=== PATIENT | female | born 1950 | race Caucasian/White ===

== ENCOUNTER 2024-12-29 19:05 | Inpatient (IN) | payer OTHER, MEDICARE ==
[2024-12-29] MEDS ORDERED: ALBUTEROL SO4 2.5/IPRATROPIUM 0.5 INH SOL 3 ML VIAL.NEB. NEB ONE ×2 (19:34→20:30)
[2024-12-29] MEDS: ALBUTEROL SO4 2.5/IPRATROPIUM 0.5 INH SOL 3 ML VIAL.NEB. NEB ONE (19:44)
[2024-12-29] MEDS ORDERED: ACETAMINOPHEN INJECTION 100 ML ONE (20:25)
[2024-12-29] MEDS: ACETAMINOPHEN 1000 MG/100 ML BAG IVPB ONE (20:29)
[2024-12-29] MEDS: ALBUTEROL SO4 2.5/IPRATROPIUM 0.5 INH SOL 3 ML VIAL.NEB. NEB SCH (20:30)
[2024-12-29 20:38] LABS: ABSOLUTE IMMATURE GRANULOCYTES 0.03 x10^3/uL (0.0-0.031); BASOPHILS # 0.01 x10^3/uL (0.01-0.08); EOSINOPHIL % 0.1 % (0.7-5.8); EOSINOPHILS # 0.01 x10^3/uL (0.04-0.36); HEMATOCRIT 38.1 % (34.1-44.9); HEMOGLOBIN 12.5 g/dL (11.2-15.7); MCHC 32.8 g/dl (32.2-35.5); MEAN CELL VOLUME 89.4 fl (79.4-94.8); MEAN PLT VOLUME 9.9 fl (9.4-12.3); MONOCYTE # 0.68 x10^3/uL (0.24-0.86); PLATELET COUNT 124 x10^3/uL (182-369); RDW 12.9 % (12.4-16.6)
[2024-12-29 20:39] LABS: VENOUS BASE EXCESS -0.5 mmol/L (-2-2); VENOUS O2 SATURATION 83.8 % (70-80); VENOUS PCO2 38.5 mmHg (38-52); VENOUS PH 7.411 (7.310-7.410)
[2024-12-29 20:45] LABS: INR 1.07 (0.83-1.09); PROTHROMBIN TIME (PATIENT) 11.7 SEC (9.7-13.0)
[2024-12-29 20:48] LABS: ACTIVATED PTT 29.2 SECONDS (25.2-36.5)
[2024-12-29 21:02] LABS: POTASSIUM 3.7 mmol/L (3.5-5.1)
[2024-12-29 21:04] LABS: ALBUMIN 3.9 g/dl (3.4-5.0); BLOOD UREA NITROGEN 12.4 mg/dL (7-18); CALCIUM 9.1 mg/dL (8.5-10.1)
[2024-12-29 21:08] LABS: CREATININE 0.8 mg/dL (0.55-1.3)
[2024-12-29 21:09] LABS: BILIRUBIN,TOTAL 0.5 mg/dL (0.2-1); TOT PROT 6.8 g/dl (6.4-8.2)
[2024-12-29] MEDS ORDERED: cefTRIAXone SODIUM 1 GM VIAL ONE (22:14)
[2024-12-29] MEDS ORDERED: CEFTRIAXONE 1 G/50 ML PREMIX 50 ML IVPB ONE (22:15)
[2024-12-29] MEDS: CEFTRIAXONE 1 GM in DEXTROSE 5%-WATER - 100 ML IVPB ONE (22:19)
[2024-12-29] MEDS ORDERED: AZITHROMYCIN IVPB 500 MG/250 ML BAG IVPB ONE (23:03)
[2024-12-29] MEDS: AZITHROMYCIN IVPB 500 MG in DEXTROSE 5%-WATER - 250 ML IVPB ONE (23:20)
[2024-12-30 01:39] LABS: LACTIC ACID 2.3 mmol/L (0.4-2.0)
[2024-12-30 03:00] LABS: URINE APPEARANCE CLEAR; URINE BILIRUBIN NEGATIVE (NEGATIVE); URINE COLOR YELLOW; URINE GLUCOSE (UA) NEGATIVE (NEGATIVE); URINE KETONE NEGATIVE (NEGATIVE); URINE LEUK ESTERASE NEGATIVE (NEGATIVE); URINE NITRITE NEGATIVE (NEGATIVE); URINE PROTEIN NEGATIVE (NEGATIVE); URINE UROBILINOGEN 0.2 mg/dL (0.2-1.0)
[2024-12-30 03:19] VITALS: BMI 19.3
[2024-12-30] MEDS: ACETAMINOPHEN 325 MG TABLET (FP) PO PRN (03:36)
[2024-12-30] MEDS: SODIUM CHLORIDE 1,000 ML IV SCH (03:38)
[2024-12-30] MEDS: guaiFENesin/D-METHORPHAN HB 10 ML UNIT-DOSE CUPS PO SCH (06:44)
[2024-12-30] MEDS: IBUPROFEN 400 MG TABLET (FP) PO ONE (06:44)
[2024-12-30 09:11] LABS: EOSINOPHIL % 0.1 % (0.7-5.8); EOSINOPHILS # 0.01 x10^3/uL (0.04-0.36); HEMOGLOBIN 11.4 g/dL (11.2-15.7); RDW 13.1 % (12.4-16.6)
[2024-12-30 09:13] LABS: ABSOLUTE IMMATURE GRANULOCYTES 0.02 x10^3/uL (0.0-0.031); BASOPHILS # 0.02 x10^3/uL (0.01-0.08); HEMATOCRIT 34.4 % (34.1-44.9); MCHC 33.1 g/dl (32.2-35.5); MEAN CELL VOLUME 89.4 fl (79.4-94.8); MONOCYTE # 0.65 x10^3/uL (0.24-0.86); MONOCYTE % 8.5 % (4.7-12.5); PLATELET COUNT 119 x10^3/uL (182-369)
[2024-12-30 09:27] LABS: POTASSIUM 3.6 mmol/L (3.5-5.1)
[2024-12-30 09:31] LABS: CHOLESTEROL 170 mg/dL (50-200)
[2024-12-30 09:32] LABS: LDL CHOLESTEROL (ONLY SJRH) 66 mg/dL (5-100)
[2024-12-30 09:33] LABS: ALBUMIN 3.2 g/dl (3.4-5.0); HDL CHOLESTEROL 89 mg/dL (40-60)
[2024-12-30 09:34] LABS: BLOOD UREA NITROGEN 10.2 mg/dL (7-18); CALCIUM 8.8 mg/dL (8.5-10.1); MAGNESIUM 1.9 mg/dL (1.8-2.4)
[2024-12-30 09:37] LABS: CREATININE 0.7 mg/dL (0.55-1.3); PHOSPHOROUS 2.9 mg/dL (2.5-4.9)
[2024-12-30 09:38] LABS: BILIRUBIN,TOTAL 0.4 mg/dL (0.2-1); TOT PROT 6.1 g/dl (6.4-8.2)
[2024-12-30] MEDS: CEFTRIAXONE 1 G/50 ML PREMIX 50 ML IVPB SCH (09:40)
[2024-12-30] MEDS: ENOXAPARIN NA (PORCINE) 40 MG/0.4 ML DISP.SYRIN SQ SCH (09:40)
[2024-12-30] MEDS: SERTRALINE HCL 50 MG TABLET (FP) PO SCH (09:40)
[2024-12-30] MEDS: methylPREDNISolone NA SUCC 40 MG/1 ML VIAL IVPUSH SCH (11:33)
[2024-12-30] MEDS: PANTOPRAZOLE 40 MG TABLET PO SCH (15:16)
[2024-12-30] MEDS ORDERED: BENZONATATE 200 MG CAPSULE PO PRN (15:50)
[2024-12-30] MEDS: MELATONIN 5 MG TABLETS PO ONE (22:07)
[2024-12-30] MEDS: ATORVASTATIN CA 10 MG TABLET (FP) PO SCH (22:07)
[2024-12-30] MEDS: AZITHROMYCIN IVPB 500 MG/250 ML BAG IVPB SCH (22:55)
[2024-12-30] MEDS ORDERED: AZITHROMYCIN IVPB 500 MG/250 ML BAG IVPB SCH (23:00)
[2024-12-31] MEDS: ALBUTEROL SO4 2.5/IPRATROPIUM 0.5 INH SOL 3 ML VIAL.NEB. NEB PRN (07:44)
[2024-12-31 08:13] LABS: ABSOLUTE IMMATURE GRANULOCYTES 0.03 x10^3/uL (0.0-0.031); EOSINOPHIL % 0.5 % (0.7-5.8); EOSINOPHILS # 0.03 x10^3/uL (0.04-0.36); HEMOGLOBIN 11.1 g/dL (11.2-15.7); RDW 13.2 % (12.4-16.6)
[2024-12-31 08:15] LABS: BASOPHILS # 0.01 x10^3/uL (0.01-0.08); HEMATOCRIT 34.4 % (34.1-44.9); MCHC 32.3 g/dl (32.2-35.5); MEAN CELL VOLUME 91.2 fl (79.4-94.8); MEAN PLT VOLUME 10.4 fl (9.4-12.3); MONOCYTE # 0.48 x10^3/uL (0.24-0.86); MONOCYTE % 7.4 % (4.7-12.5); PLATELET COUNT 125 x10^3/uL (182-369)
[2024-12-31 10:04] LABS: POTASSIUM 3.4 mmol/L (3.5-5.1)
[2024-12-31 10:07] LABS: ALBUMIN 3.1 g/dl (3.4-5.0)
[2024-12-31 10:11] LABS: CALCIUM 8.5 mg/dL (8.5-10.1); CREATININE 0.6 mg/dL (0.55-1.3)
[2024-12-31 10:12] LABS: TOT PROT 6.1 g/dl (6.4-8.2)
[2024-12-31 10:32] LABS: BILIRUBIN,TOTAL 0.3 mg/dL (0.2-1)
[2024-12-31] MEDS: POTASSIUM CHLORIDE TABS 20 MEQ TABLET.ER (FP) PO ONE (10:55)
[2024-12-31] MEDS: ALBUTEROL SO4 2.5/IPRATROPIUM 0.5 INH SOL 3 ML VIAL.NEB. NEB SCH (11:55)
[2024-12-31 14:55] VITALS: RESP 18
[2024-12-31 21:08] VITALS: PULSE 76
[2024-12-31] MEDS: MELATONIN 5 MG TABLETS PO ONE (21:35)
[2024-12-31] MEDS ORDERED: LIDOCAINE PATCH REMOVAL MC SCH (22:00)
[2024-12-31] MEDS: LIDOCAINE 5% TOPICAL PATCH TP SCH (22:07)
[2025-01-01 06:29] VITALS: BP 120/63; TEMP 97.9
[2025-01-01 08:15] LABS: ABSOLUTE IMMATURE GRANULOCYTES 0.03 x10^3/uL (0.0-0.031); BASOPHILS # 0.02 x10^3/uL (0.01-0.08); EOSINOPHIL % 0.7 % (0.7-5.8); EOSINOPHILS # 0.05 x10^3/uL (0.04-0.36); HEMATOCRIT 32.2 % (34.1-44.9); HEMOGLOBIN 10.4 g/dL (11.2-15.7); MCHC 32.3 g/dl (32.2-35.5); MEAN CELL VOLUME 90.7 fl (79.4-94.8); MEAN PLT VOLUME 10.4 fl (9.4-12.3); MONOCYTE # 0.52 x10^3/uL (0.24-0.86); MONOCYTE % 7.4 % (4.7-12.5); PLATELET COUNT 142 x10^3/uL (182-369); RDW 12.9 % (12.4-16.6)
[2025-01-01 08:40] LABS: POTASSIUM 3.9 mmol/L (3.5-5.1)
[2025-01-01 08:41] LABS: CALCIUM 9.1 mg/dL (8.5-10.1)
[2025-01-01 08:43] LABS: ALBUMIN 2.9 g/dl (3.4-5.0); BLOOD UREA NITROGEN 8.2 mg/dL (7-18); MAGNESIUM 1.9 mg/dL (1.8-2.4)
[2025-01-01 08:46] LABS: CREATININE 0.6 mg/dL (0.55-1.3)
[2025-01-01 08:47] LABS: BILIRUBIN,TOTAL 0.3 mg/dL (0.2-1); TOT PROT 5.9 g/dl (6.4-8.2)
[2025-01-01] MEDS ORDERED: AZITHROMYCIN 500 MG TABLET PO SCH (10:00)
[2025-01-01] MEDS: AZITHROMYCIN 250 MG TABLET PO SCH (10:28)
[2025-01-01] MEDS: predniSONE 20 MG TABLET (UD) PO SCH (10:28)
== END 2025-01-01 11:58 | disposition home or self-care (01) | DRG 194 ==
LOC: JER 19:05 → JERBED 21:25 → J8W 12-30 03:02
PROVIDERS: ADMIT Student in an Organized Health Care Education/Training Program; ATTEND Nurse Practitioner Family
DX: J18.9 Pneumonia, unspecified organism (principal); E44.0 Moderate protein-calorie malnutrition; Z68.1 Body mass index [BMI] 19.9 or less, adult; E78.5 Hyperlipidemia, unspecified; F32.A Depression, unspecified; F41.9 Anxiety disorder, unspecified; R09.02 Hypoxemia
CPT/HCPCS: 0241U-QW; 36415; 71045-TC-FY; 71275-TC; 80053; 80061; 81003; 82803; 82962; 83036; 83605; 83735; 84100; 84439; 84443; 84484; 85025; 85610; 85730; 86850; 86900; 86901; 87040; 87070; 87086; 87205; 87899; 93005; 93010; 94640; 99285-25; J0131